=== PATIENT | female | born 1985 | race Two or more races ===

== ENCOUNTER 2017-05-23 08:19 | Emergency (ER) | payer MEDICAID | END 2017-05-23 09:04 | disposition home or self-care (01) | LOC: FTE 08:19 | DX: J32.9 Chronic sinusitis, unspecified (principal) | CPT/HCPCS: 99283; Z7502 ==

== ENCOUNTER 2017-06-07 08:19 | Emergency (ER) | payer MEDICAID | END 2017-06-07 10:13 | disposition home or self-care (01) | LOC: FTE 08:19 | DX: J32.9 Chronic sinusitis, unspecified (principal) | CPT/HCPCS: 99284; Z7502 ==

== ENCOUNTER 2018-03-13 18:23 | Emergency (ER) | payer MEDICAID | END 2018-03-13 21:50 | disposition home or self-care (01) | LOC: FTE 18:23 | DX: J32.9 Chronic sinusitis, unspecified (principal); M79.672 Pain in left foot | CPT/HCPCS: 99282 ==